=== PATIENT | male | born 1990 | race African-American/Black ===

== ENCOUNTER 2017-04-30 02:17 | Emergency (ER) | payer OTHER ==
[~2017-04-30] VITALS: Ht 177.8 cm; Wt 81.7 kg
[~2017-04-30 02:17] MED LIST: IBUPROFEN 600600 M1 PO; NOHOMEMEDICATIONS; NORCO 5-325 TA1 EACH PO; TRAMADOL 50 MG50 MG PO
[2017-04-30 02:45] VITALS: BP 141/85
== END 2017-04-30 07:44 | disposition home or self-care (01) ==
LOC: ER 02:17
DX: T16.2XXA Foreign body in left ear, initial encounter (principal); G89.29 Other chronic pain; F17.210 Nicotine dependence, cigarettes, uncomplicated; X58.XXXA Exposure to other specified factors, initial encounter; Y93.89 Activity, other specified; Y92.89 Other specified places as the place of occurrence of the external cause; Y99.8 Other external cause status

== ENCOUNTER 2017-09-28 23:17 | Emergency (ER) | payer OTHER ==
[~2017-09-28] VITALS: Ht 177.8 cm; Wt 81.7 kg
== END 2017-09-29 00:45 | disposition left against medical advice (07) ==
LOC: ER 23:17
DX: Z53.21 Procedure and treatment not carried out due to patient leaving prior to being seen by health care provider (principal); F17.210 Nicotine dependence, cigarettes, uncomplicated

== ENCOUNTER 2018-02-01 02:20 | Emergency (ER) | payer OTHER ==
[~2018-02-01] VITALS: Ht 180.3 cm; Wt 78.5 kg
[2018-02-01] MEDS ORDERED: NORFLEX100 MG PO (04:23)
[2018-02-01] MEDS ORDERED: TRAMADOL 50 MG50 MG PO (04:23)
[2018-02-01] MEDS ORDERED: NAPROSYN500 MG PO (04:23)
[2018-02-01 05:00] VITALS: BP 135/82
== END 2018-02-01 05:01 | disposition home or self-care (01) ==
LOC: ER 02:20
DX: S16.1XXA Strain of muscle, fascia and tendon at neck level, initial encounter (principal); M43.6 Torticollis; R51 Headache; G89.29 Other chronic pain; F17.210 Nicotine dependence, cigarettes, uncomplicated; Y08.89XA Assault by other specified means, initial encounter; Y93.89 Activity, other specified; Y92.89 Other specified places as the place of occurrence of the external cause; Y99.8 Other external cause status

== ENCOUNTER 2020-10-06 23:46 | Emergency (ER) | payer OTHER ==
[~2020-10-06] VITALS: Ht 177.8 cm; Wt 90.7 kg
[~2020-10-06 23:46] MED LIST changes: +NAPROSYN500 MG PO; +NORFLEX100 MG PO
[2020-10-07 00:52] LABS: HEMATOCRIT 39.5 % (42.0-52.0); HEMOGLOBIN 13.3 gm/dL (14.0-18.0); MCH 30.7 pg (26.0-34.0); MCHC 33.7 g/dL (28.0-37.0); MCV 91.3 fL (80.0-100.0); PLATELET COUNT 129 thou/uL (150-400); RBC 4.32 mil/uL (4.50-6.00); WBC 2.6 thou/uL (4.0-11.0)
[2020-10-07 00:55] LABS: ANION GAP 10 mmol/L (7-16); BUN 19 mg/dL (7-18); CALCIUM 8.7 mg/dL (8.5-10.1); CHLORIDE 100 mmol/L (98-107); CO2 27 mmol/L (21-32); CREATININE 1.4 mg/dL (0.7-1.3); GLUCOSE 127 mg/dL (74-106); POTASSIUM 3.5 mmol/L (3.5-5.1); SODIUM 137 mmol/L (136-145)
[2020-10-07 01:03] LABS: TROPONIN-I <0.06 ng/mL (<0.06)
[2020-10-07 02:01] LABS: LARGE PLATELETS FEW; PLATELET ESTIMATE DECREASED
[2020-10-07 02:16] LABS: URINE BILIRUBIN NEGATIVE (Negative); URINE BLOOD NEGATIVE (Negative); URINE CLARITY CLEAR; URINE COLOR YELLOW; URINE GLUCOSE-RANDOM* NEGATIVE (Negative); URINE KETONES NEGATIVE (Negative); URINE LEUKOCYTES-REFLEX NEGATIVE (Negative); URINE NITRITE-REFLEX NEGATIVE (Negative); URINE PROTEIN (DIPSTICK) NEGATIVE (Negative); URINE SPECIFIC GRAVITY >= 1.030 (1.005-1.035); URINE UROBILINOGEN 0.2 E.U./dl (0.2-1.0)
[2020-10-07 02:53] LABS: ABSOLUTE RETIC COUNT 0.0206 10^6/uL; OBSERVED RETIC COUNT 0.48 % (0.6-2.6)
[2020-10-07 03:07] LABS: ALBUMIN 3.5 g/dL (3.4-5.0); DIRECT BILIRUBIN < 0.1 mg/dL (<0.1-0.2); SGOT 23 U/L (15-37); SGPT 21 U/L (16-63); TOTAL BILIRUBIN 0.2 mg/dL (0.2-1.0); TOTAL PROTEIN 6.9 g/dL (6.4-8.2); TROPONIN-I <0.06 ng/mL (<0.06)
[2020-10-07 03:38] VITALS: BP 124/70
--- NOTE | 2020-10-07 07:21 | EKG ---
[place] [address] [facility] [place] [address] ELECTROCARDIOGRAM REPORT Name: JESSIWILL Room #: DEP WAI Sage#: [id number] Admission: 10/06/20 Attend Phys: Discharge: 10/07/20 Date of : 89 Report #: [id number] [facility] ED Test Date: 2020-10-06 Test Time: 23:50:11 Pat Name: WILL BOWEN Department: Room: Gender: M Human Resources Trainer: LEVAR : 1990 Requested By: Cristopher Izaguirre Order Number: [id number] MD: Oh Calle Measurements Intervals [place] Rate: 90 P: 68 DC: 177 QRS: 77 QRSD: 91 T: 9 QT: 335 QTc: 410 Interpretive Statements Sinus rhythm No significant abnormality No previous ECG available for comparison Electronically Signed On 10-07-2020 7:21:08 PRIVACY DIRECTOR by Oh Calle [email or web address] <ELECTRONICALLY SIGNED> By: Oh Calle MD, [facility] 10/07/20 0721 2350 2350 Oh Calle MD, FACC /EPI
== END 2020-10-07 03:54 | disposition home or self-care (01) ==
LOC: ER 23:46
PROVIDERS: Emergency Medicine
DX: R07.9 Chest pain, unspecified (principal); D72.819 Decreased white blood cell count, unspecified; T50.905A Adverse effect of unspecified drugs, medicaments and biological substances, initial encounter; F17.210 Nicotine dependence, cigarettes, uncomplicated; Y92.89 Other specified places as the place of occurrence of the external cause